=== PATIENT | female | born 2000 | race Caucasian/White ===

== ENCOUNTER 2022-05-03 12:07 | Emergency (ER) | payer MEDICAID ==
[2022-05-03] MEDS ORDERED: ZENATANE30 MG PO (12:15)
[2022-05-03] MEDS ORDERED: DROSPIRENONE-E1 EACH PO (12:15)
[2022-05-03] MEDS ORDERED: DEXMETHYLPHENID10 M1 PO (12:15)
[2022-05-03 12:31] LABS: BASO # 0.05 K/mm3 (0.02-0.10); EOS # 0.09 K/mm3 (0.04-0.40); HEMATOCRIT 38.5 % (35.0-45.0); HEMOGLOBIN 12.8 g/dL (12.0-15.0); LYMPH# 2.67 K/mm3 (1.20-3.40); MEAN CELL VOLUME 86 fl (78-95); MEAN CORPUSCULAR HEMOGLOBIN 28 pg (26-32); MEAN CORPUSCULAR HGB CONC 33 g/dL (33-37); MEAN PLATELET VOLUME 9.5 fl (7.4-10.4); MONO # 0.59 K/mm3 (0.10-0.60); NEU # 5.65 K/mm3 (1.40-6.50); PLATELET COUNT 267 K/mm3 (130-400); RED CELL DISTRIBUTION WIDTH 12.6 % (11.5-14.5); WHITE BLOOD COUNT 9.1 K/mm3 (4.8-10.8)
[2022-05-03 12:41] LABS: ALBUMIN 4.2 g/dL (3.5-5.0); POTASSIUM 3.8 mmol/L (3.5-5.1)
[2022-05-03 12:42] LABS: CALCIUM 9.4 mg/dL (8.3-10.5)
[2022-05-03 12:43] LABS: TOTAL PROTEIN 7.3 g/dL (6.4-8.3)
[2022-05-03 12:45] LABS: TOTAL BILIRUBIN 0.3 mg/dL (0.2-1.2)
[2022-05-03 15:54] VITALS: BP 118/79
== END 2022-05-03 19:54 | disposition home or self-care (01) ==
LOC: ED 12:07
PROVIDERS: Nurse Practitioner
DX: Z28.310 Unvaccinated for COVID-19 (principal); G43.909 Migraine, unspecified, not intractable, without status migrainosus
CPT/HCPCS: J0780

== ENCOUNTER 2022-07-25 22:50 | Emergency (ER) | payer MEDICAID ==
[~2022-07-25] VITALS: Ht 154.9 cm; Wt 78.4 kg
[~2022-07-25 22:50] MED LIST: DEXMETHYLPHENID10 M1 PO; DROSPIRENONE-E1 EACH PO; ZENATANE30 MG PO
[2022-07-25] MEDS ORDERED: IRON90 MG PO (22:57)
[2022-07-25] MEDS ORDERED: GLUCOPHAGE PO (22:57)
[2022-07-25] MEDS ORDERED: AZITHROMYCIN 250MGPK PO (23:54)
[2022-07-25] MEDS ORDERED: PREDNISONE20 M1 PO (23:54)
[2022-07-26 00:59] VITALS: BP 125/50
== END 2022-07-26 01:00 | disposition home or self-care (01) ==
LOC: ED 22:50
DX: J45.909 Unspecified asthma, uncomplicated (principal); B34.9 Viral infection, unspecified; Z88.0 Allergy status to penicillin
CPT/HCPCS: J7512